=== PATIENT | male | born 1990 | race Caucasian/White ===

== ENCOUNTER 2016-05-23 22:16 | Emergency (ER) | payer BC, OTHER ==
[2016-05-24 00:29] LABS: BASO # 0.1 K/mm3 (0.0-0.2); EOS # 0.2 K/mm3 (0.0-0.50); EOS % 2.3 % (0.0-3.0); LARGE UNSTAINED CELL # 0.2 K/mm3 (0.0-0.4); LARGE UNSTAINED CELL % 1.9 % (0.0-4.0); LYMPH # 2.7 K/mm3 (1.5-6.5); LYMPH % 25.1 % (24.0-44.0); MEAN CORPUSCULAR HEMOGLOBIN 31.9 pg (27.0-33.0); MEAN CORPUSCULAR HGB CONC 34.7 g/dl (32.0-36.5); MEAN CORPUSCULAR VOLUME 91.8 fl (80.0-96.0); MONO # 0.6 K/mm3 (0.0-0.8); MONO % 6.1 % (0.0-5.0); NEUTROPHILS # 6.5 K/mm3 (1.8-7.7); NEUTROPHILS % 63.8 % (36.0-66.0); PLATELET COUNT, AUTOMATED 273 k/mm3 (150-450); RED CELL DISTRIBUTION WIDTH 12.6 % (11.5-14.5); WHITE BLOOD COUNT 10.2 K/mm3 (4.0-10.0)
[2016-05-24 00:50] LABS: ANION GAP 5 MEQ/L (8-16); BLOOD UREA NITROGEN 16 MG/DL (7-18); CALCIUM LEVEL 9.2 MG/DL (8.5-10.1); CARBON DIOXIDE LEVEL 29 MEQ/L (21-32); CHLORIDE LEVEL 107 MEQ/L (98-107); CREATININE FOR GFR 1.08 MG/DL (0.70-1.30); GLOMERULAR FILTRATION RATE > 60.0 (>60); GLUCOSE, FASTING 95 MG/DL (70-105); MAGNESIUM LEVEL 2.3 MG/DL (1.8-2.4); POTASSIUM SERUM 4.2 MEQ/L (3.5-5.1); SODIUM LEVEL 141 MEQ/L (136-145)
--- NOTE | 2016-05-24 01:22 | EDDOCDS ---
Physician Documentation [facility] Name: Spike Cleveland Age: 25 yrs Sex: Male : 1990 Arrival Date: 05/23/2016 Time: 22:16 Bed I5 / M5 Private MD: James Contreras Disposition: 05/24/16 01:10 Discharged to Home/Self Care. Impression: Chest pain, unspecified, Cannabis use, unspecified. - Condition is Stable. - Discharge Instructions: Nonspecific Chest Pain, Cannabis Use Disorder. - Medication Reconciliation, Local Pharmacy Hours form. - [facility]; When: Call to arrange an appointment; Reason: To establish care. Follow up: [facility]; When: Call to arrange an appointment; Reason: Recheck today's complaints. Follow up: Emergency Department; When: As needed; Reason: Worsening of conditions. - Problem is new. - Symptoms have improved. - Notes: recommend stopping supplements and marijuana use. call to arrange follow up appointment with cardiology. return to ER if worsening condition Historical: - Allergies: No known drug Allergies; - Home Meds: 1. scarlett extract 350 mg oral cap 2. 5-HTP 100 mg oral cap 3. zinc sulfate 66 mg Oral tab - PMHx: none; - PSHx: right ankle; ACL repair BL; - Social history: Smoking status: other Patient uses street drugs, marijuana, No barriers to communication noted, The patient speaks fluent Jamaican, Speaks appropriately for age, Preferred Language: Jamaican. - Family history: Not pertinent. - : The pt / caregiver states he / she is not on anticoagulants. Home medication list is obtained from the patient. - Exposure Risk Screening:: None identified. Vital Signs: 05/23 22:19 BP 145 / 77; Pulse 65; Resp 18 S; Temp 96.9(O); Pulse Ox 100% on R/A; Weight 74.39 kg / gr2 164 lbs (R); Height 5 ft. 6 in. (167.64 cm) (R); Pain 3/10; 05/24 01:18 BP 141 / 71; Pulse 67; Resp 16; Temp 97.1; Pulse Ox 99% on R/A; Pain 3/10; ld5 05/23 22:19 Body Mass Index 26.47 (74.39 kg, 167.64 cm) gr2 MDM: 05/23 22:49 ECG WITH READING ER PHYS+CARDIAG ordered. EDMS 23:57 Financial registration complete. hs2 05/24 00:08 Chest, 2 View (pa\E\lat) Ordered. EDMS 00:08 CBC with Diff Ordered. EDMS 00:08 MED Profile Ordered. EDMS 00:08 Magnesium Level Ordered. EDMS 00:08 Troponin Ordered. EDMS 00:08 D-Dimer Quant Ordered. EDMS 00:08 CIP Ordered. EDMS 00:32 [facility] Payment Agreement was scanned into [employer] and attached to record. hs2 00:44 CBC with Diff Reviewed. ar2 00:44 D-Dimer Quant Reviewed. ar2 00:55 MED Profile Reviewed. ar2 00:55 Magnesium Level Reviewed. ar2 00:55 Troponin Reviewed. ar2 00:55 CIP Reviewed. ar2 Signatures: Dispatcher [employer] EDAL Joi Hawley RN RN lf1 Nir Riley, TYRONE-C PA-C ar2 Sheryl Remy RN RN ld5 Saira Figueroa, Reg Reg hs2 The chart was reviewed and I authenticate all verbal orders and agree with the evaluation and treatment provided.Attachments: 00:32 [facility] Payment Agreement hs2 MTDD
--- NOTE | 2016-05-24 01:22 | EDDOCDS ---
Nurse's Notes [facility] Name: Spike Cleveland Age: 25 yrs Sex: Male : 1990 Arrival Date: 05/23/2016 Time: 22:16 Bed I5 / M5 Private MD: James Contreras Diagnosis: Chest pain, unspecified;Cannabis use, unspecified Presentation: 05/23 22:24 Presenting complaint: Patient states: Chest that began last night at 0200 while resting lf1 in bed. Pt reports that he felt that something dropped in his chest and he was having a hear attack. Pt states symptoms have improved but is not resolved. Pt reports he took 5 of his 5-HTP supplements and 1 Scarlett supplement. Aspirin was not taken prior to arrival. Adult Sepsis Screening: The patient does not have new or worsening altered mentation. Patient's respiratory rate is less than 22. Systolic blood pressure is greater than 100. Patient has a qSOFA score of 0- Negative Sepsis Screen. Suicide/Homicide risk assessment- the patient denies having any suicidal and/or homicidal ideations and does not present with any other emotional, behavioral or mental health complaints. Status: Patient is not a business services tech or dependent. Transition of care: patient was not received from another setting of care. 22:24 Acuity: NAWAF Level 3 lf1 22:24 Method Of Arrival: Walkin/Carried/Asstd lf1 Triage Assessment: 22:33 General: Appears distressed, Behavior is anxious, restless. Pain: Location: chest Pain lf1 currently is 3 out of 10 on a pain scale. Quality of pain is described as pulsating. HIV screening NA for this visit Offered previously. Neurological: Level of Consciousness is awake, alert, Oriented to person, place, time. EENT: No deficits noted. Cardiovascular: Chest pain is described as diffuse, quality is heaviness, radiates Does not radiate. episodes are continuous began 20 hours ago. Respiratory: Respiratory effort is even, unlabored, Reports shortness of breath. GI: Denies nausea, vomiting. Derm: Skin is normal. Historical: - Allergies: No known drug Allergies; - Home Meds: 1. scarlett extract 350 mg oral cap 2. 5-HTP 100 mg oral cap 3. zinc sulfate 66 mg Oral tab - PMHx: none; - PSHx: right ankle; ACL repair BL; - Social history: Smoking status: other Patient uses street drugs, marijuana, No barriers to communication noted, The patient speaks fluent Setswana, Speaks appropriately for age, Preferred Language: Setswana. - Family history: Not pertinent. - : The pt / caregiver states he / she is not on anticoagulants. Home medication list is obtained from the patient. - Exposure Risk Screening:: None identified. Screenin/27 01:18 Screening information is obtained from the patient. Fall risk: No risks identified. ld5 Assistance ADL's: requires no assistance with activities of daily living. Assistance ADL's: requires no assistance with activities of daily living. Abuse/DV Screen: The patient / caregiver reports he/she is: not in a situation that causes fear, pain or injury. Nutritional screening: No deficits noted. Advance Directives: There is no active DNR order. home support is adequate. Assessment: 01:18 General: Appears in no apparent distress, Behavior is anxious, cooperative. Pain: ld5 Location: chest Pain currently is 3 out of 10 on a pain scale. Neurological: Level of Consciousness is awake, alert, obeys commands. Cardiovascular: Rhythm is n/a. Respiratory: Airway is patent Respiratory effort is even, unlabored. GI: Denies nausea, vomiting. Derm: Skin is intact, Skin is dry. Vital Signs: 05/23 22:19 BP 145 / 77; Pulse 65; Resp 18 S; Temp 96.9(O); Pulse Ox 100% on R/A; Weight 74.39 kg gr2 (R); Height 5 ft. 6 in. (167.64 cm) (R); Pain 3/10; 05/24 01:18 BP 141 / 71; Pulse 67; Resp 16; Temp 97.1; Pulse Ox 99% on R/A; Pain 3/10; ld5 05/23 22:19 Body Mass Index 26.47 (74.39 kg, 167.64 cm) gr2 Vitals: 05/23 22:19 Log In Time: May 23, 2016 at 22:19. gr2 ED Course: 22:18 Patient visited by Paul Boone. gr2 22:18 Patient moved to Waiting gr2 22:19 James Contreras is Private Physician. gr2 22:20 Patient visited by Paul Boone. gr2 22:20 Patient moved to Pre RCE gr2 22:31 Triage Initiated lf1 22:46 Patient moved to Triage 2 cz 23:29 EKG done. (by ED staff). Reviewed by Elias Martin DO. rw1 23:53 Nir Riley PA-C is PHCP. ar2 23:53 Elias Martin DO is Attending Physician. ar2 23:57 Patient visited by Nir Riley PA-C. ar2 05/24 00:14 Patient moved to I5 / M5 cz 00:18 CIP Sent. lf1 00:18 D-Dimer Quant Sent. lf1 00:18 Troponin Sent. lf1 00:18 Magnesium Level Sent. lf1 00:18 MED Profile Sent. lf1 00:18 CBC with Diff Sent. lf1 00:26 Patient name changed from Spike\S\D\S\Cleveland\S\ to Spike\S\Juan\S\Cleveland. EDMS 00:32 [facility] Payment Agreement was scanned into [employer] and attached to record. hs2 01:04 Patient visited by Sheryl Remy RN. ld5 01:09 [facility] is Referral Physician. ar2 01:09 [facility] is Referral Physician. ar2 01:18 No IV's were initiated during this patient's visit. No procedures done that require ld5 assistance. 01:20 The patient / caregiver is instructed regarding the plan of care and ED course. Cardiac ld5 monitoring not applicable on this patient. 01:21 Patient visited by Sheryl Remy RN. ld5 Order Results: Lab Order: CBC with Diff; SPEC'M 05/24/16 00:13 Test: WHITE BLOOD COUNT; Value: 10.2; Range: 4.0-10.0; Abnormal: Above high normal; Units: K/mm3; Status: F Test: RED BLOOD COUNT; Value: 4.86; Range: 4.30-6.10; Units: M/mm3; Status: F Test: HEMOGLOBIN; Value: 15.5; Range: 14.0-18.0; Units: g/dl; Status: F Test: HEMATOCRIT; Value: 44.6; Range: 42.0-52.0; Units: %; Status: F Test: MEAN CORPUSCULAR VOLUME; Value: 91.8; Range: 80.0-96.0; Units: fl; Status: F Test: MEAN CORPUSCULAR HEMOGLOBIN; Value: 31.9; Range: 27.0-33.0; Units: pg; Status: F Test: MEAN CORPUSCULAR HGB CONC; Value: 34.7; Range: 32.0-36.5; Units: g/dl; Status: F Test: RED CELL DISTRIBUTION WIDTH; Value: 12.6; Range: 11.5-14.5; Units: %; Status: F Test: PLATELET COUNT, AUTOMATED; Value: 273; Range: 150-450; Units: k/mm3; Status: F Test: NEUTROPHILS %; Value: 63.8; Range: 36.0-66.0; Units: %; Status: F Test: LYMPH %; Value: 25.1; Range: 24.0-44.0; Units: %; Status: F Test: MONO %; Value: 6.1; Range: 0.0-5.0; Abnormal: Above high normal; Units: %; Status: F Test: EOS %; Value: 2.3; Range: 0.0-3.0; Units: %; Status: F Test: BASO %; Value: 1.0; Range: 0.0-1.0; Units: %; Status: F Test: LARGE UNSTAINED CELL %; Value: 1.9; Range: 0.0-4.0; Units: %; Status: F Test: NEUTROPHILS #; Value: 6.5; Range: 1.8-7.7; Units: K/mm3; Status: F Test: LYMPH #; Value: 2.7; Range: 1.5-6.5; Units: K/mm3; Status: F Test: MONO #; Value: 0.6; Range: 0.0-0.8; Units: K/mm3; Status: F Test: EOS #; Value: 0.2; Range: 0.0-0.50; Units: K/mm3; Status: F Test: BASO #; Value: 0.1; Range: 0.0-0.2; Units: K/mm3; Status: F Test: LARGE UNSTAINED CELL #; Value: 0.2; Range: 0.0-0.4; Units: K/mm3; Status: F Lab Order: MED Profile; SPEC'M 05/24/16 00:13 Test: GLUCOSE, FASTING; Value: 95; Range: 70-105; Units: MG/DL; Status: F Test: BLOOD UREA NITROGEN; Value: 16; Range: 7-18; Units: MG/DL; Status: F Test: CREATININE FOR GFR; Value: 1.08; Range: 0.70-1.30; Units: MG/DL; Status: F Test: GLOMERULAR FILTRATION RATE; Value: > 60.0; Range: >60; Status: F Test: SODIUM LEVEL; Value: 141; Range: 136-145; Units: MEQ/L; Status: F Test: POTASSIUM SERUM; Value: 4.2; Range: 3.5-5.1; Units: MEQ/L; Status: F Test: CHLORIDE LEVEL; Value: 107; Range: 98-107; Units: MEQ/L; Status: F Test: CARBON DIOXIDE LEVEL; Value: 29; Range: 21-32; Units: MEQ/L; Status: F Test: ANION GAP; Value: 5; Range: 8-16; Abnormal: Below low normal; Units: MEQ/L; Status: F Test: CALCIUM LEVEL; Value: 9.2; Range: 8.5-10.1; Units: MG/DL; Status: F Test Note: ; Units are mL/min/1.73 m2 Chronic Kidney Disease Staging per NKF: Stage I & II GFR >=60 Normal to Mildly Decreased Stage III GFR 30-59 Moderately Decreased Stage IV GFR 15-29 Severely Decreased Stage V GFR <15 Very Little GFR Left ESRD GFR <15 on PRODUCTION WORKER Lab Order: Magnesium Level; SPEC'M 05/24/16 00:13 Test: MAGNESIUM LEVEL; Value: 2.3; Range: 1.8-2.4; Units: MG/DL; Status: F Lab Order: Troponin; SPEC'M 05/24/16 00:13 Test: TROPONIN I; Value: < 0.02; Range: < 0.10; Units: NG/ML; Status: F Test Note: ; Troponin I Reference Interval for [employer] LOCI: 99th Percentile= 0.00-0.045 ng/ml Risk Stratification: <= 0.10 ng/ml Decreased Risk for Adverse Clinical Events. 0.10-1.50 ng/ml Increased Risk for Adverse Clinical Events. Evaluation of additional criterion and/or repeat testing in 2-6 hours is suggested to rule out myocardial damage. >= 1.50 ng/ml Indicative of Myocardial Injury. Lab Order: D-Dimer Quant; SPEC'M 05/24/16 00:13 Test: D-DIMER QUANT; Value: 280.4; Range: <500; Units: ng/ml; Status: F Lab Order: CIP; SPEC'M 05/24/16 00:13 Test: CPK CREATINE PHOSPHOKINASE; Value: 235; Range: 39-308; Units: U/L; Status: F Test: CK-MB VALUE MASS; Value: 2.1; Range: 0.0-3.6; Units: NG/ML; Status: F Test: MB/CK RELATIVE INDEX; Value: 0.89; Range: < OR =4; Status: F Test Note: ; DIAGNOSIS CRITERIA MMB ng/ml Relative Index (RI) NON-AMI < or = 5 N/A PEDRO ZONE > 5 < or = 4 AMI > 5 > 4 Outcome: 01:10 Discharge ordered by Provider. ar2 01:18 Discharge Assessment: Patient awake, alert and oriented x 3. No cognitive and/or ld5 functional deficits noted. Patient verbalized understanding of disposition instructions. patient administered narcotics - no. The following High Risk Discharge criteria are identified: None. Discharged to home ambulatory. Condition: stable. Discharge instructions given to patient, Instructed on discharge instructions, follow up and referral plans. marijuana use, supplement use. 01:20 No special radiology studies were completed. Property :Personal belongings accompany Pt.ld5 01:20 Patient left the ED. ld5 Signatures: Dispatcher [employer] EDMS Mino Kellogg, RN RN cz Morris Hale LPN LPN rw1 Joi Hawley RN RN lf1 Nir Riley PA-C PAAlli ar2 Sheryl Remy RN RN ld5 Paul Boone gr2 Saira Figueroa, Reg Reg hs2 MTDD
--- NOTE | 2016-05-24 01:56 | REP ---
Clinical: Central chest pain . Comparison: 08/25/2008 . Technique: PA and lateral. Findings: The mediastinum and cardiac silhouette are normal. The lung rosen are clear and without acute consolidation, effusion, or pneumothorax. The skeletal structures are intact and normal. Impression: 1. No acute cardiopulmonary process. Signed by Santiago Ellington MD 05/24/2016 01:48 A
--- NOTE | 2016-05-24 07:36 | ECGEPIP ---
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 Order Number: [id number] Reading MD: Mercedes Tobar Measurements Intervals [place] Rate: 62 P: 50 [place]: 120 QRS: 58 QRSD: 102 T: 26 QT: 389 QTc: 395 Interpretive Statements SINUS RHYTHM WITH SINUS ARRHYTHMIA POSSIBLE RIGHT VENTRICULAR CONDUCTION DELAY ST ELEVATION, PROBABLY EARLY REPOLARIZATION, CLINICAL CORRELATION NO PRIOR FOR COMPARISON Electronically Signed On 05-24-2016 7:36:13 EST by Mercedes Tobar
--- NOTE | 2016-05-26 02:22 | EDDOCDS ---
Physician Documentation [facility] Name: Spike Cleveland Age: 25 yrs Sex: Male : 1990 Arrival Date: 05/23/2016 Time: 22:16 Bed I5 / M5 Private MD: James Contreras Disposition: 05/24/16 01:10 Discharged to Home/Self Care. Impression: Chest pain, unspecified, Cannabis use, unspecified. - Condition is Stable. - Discharge Instructions: Nonspecific Chest Pain, Cannabis Use Disorder. - Medication Reconciliation, Local Pharmacy Hours form. - [facility]; When: Call to arrange an appointment; Reason: To establish care. Follow up: [facility]; When: Call to arrange an appointment; Reason: Recheck today's complaints. Follow up: Emergency Department; When: As needed; Reason: Worsening of conditions. - Problem is new. - Symptoms have improved. - Notes: recommend stopping supplements and marijuana use. call to arrange follow up appointment with cardiology. return to ER if worsening condition Historical: - Allergies: No known drug Allergies; - Home Meds: 1. scarlett extract 350 mg oral cap 2. 5-HTP 100 mg oral cap 3. zinc sulfate 66 mg Oral tab - PMHx: none; - PSHx: right ankle; ACL repair BL; - Social history: Smoking status: other Patient uses street drugs, marijuana, No barriers to communication noted, The patient speaks fluent Estonian, Speaks appropriately for age, Preferred Language: Estonian. - Family history: Not pertinent. - : The pt / caregiver states he / she is not on anticoagulants. Home medication list is obtained from the patient. - Exposure Risk Screening:: None identified. Vital Signs: 05/23 22:19 BP 145 / 77; Pulse 65; Resp 18 S; Temp 96.9(O); Pulse Ox 100% on R/A; Weight 74.39 kg / gr2 164 lbs (R); Height 5 ft. 6 in. (167.64 cm) (R); Pain 3/10; 05/24 01:18 BP 141 / 71; Pulse 67; Resp 16; Temp 97.1; Pulse Ox 99% on R/A; Pain 3/10; ld5 05/23 22:19 Body Mass Index 26.47 (74.39 kg, 167.64 cm) gr2 MDM: 05/23 22:49 ECG WITH READING ER PHYS+CARDIAG ordered. EDMS 23:57 Financial registration complete. hs2 05/24 00:08 Chest, 2 View (pa\E\lat) Ordered. EDMS 00:08 CBC with Diff Ordered. EDMS 00:08 MED Profile Ordered. EDMS 00:08 Magnesium Level Ordered. EDMS 00:08 Troponin Ordered. EDMS 00:08 D-Dimer Quant Ordered. EDMS 00:08 CIP Ordered. EDMS 00:32 [facility] Payment Agreement was scanned into [employer] and attached to record. hs2 00:44 CBC with Diff Reviewed. ar2 00:44 D-Dimer Quant Reviewed. ar2 00:55 MED Profile Reviewed. ar2 00:55 Magnesium Level Reviewed. ar2 00:55 Troponin Reviewed. ar2 00:55 CIP Reviewed. ar2 09:00 T-Sheet-- Draft Copy was scanned into [employer] and attached to record. gb 09:00 ECG/EKG was scanned into [employer] and attached to record. gb Signatures: Dispatcher [employer] EDSC Joaquina Pena, Reg Reg gb Joi Hawley,RN RN lf1 Nir Riley, SONYA PACatherineC ar2 Sheryl Remy,RN RN ld5 Saira Figueroa, Reg Reg hs2 The chart was reviewed and I authenticate all verbal orders and agree with the evaluation and treatment provided.Attachments: 00:32 [facility] Payment Agreement hs2 09:00 T-Sheet-- Draft Copy gb 09:00 ECG/EKG gb Chart Complete MTDD
--- NOTE | 2016-05-26 02:22 | EDDOCDS ---
Physician Documentation [facility] Name: Spike Cleveland Age: 25 yrs Sex: Male : 1990 Arrival Date: 05/23/2016 Time: 22:16 Bed I5 / M5 Private MD: James Contreras Disposition: 05/24/16 01:10 Discharged to Home/Self Care. Impression: Chest pain, unspecified, Cannabis use, unspecified. - Condition is Stable. - Discharge Instructions: Nonspecific Chest Pain, Cannabis Use Disorder. - Medication Reconciliation, Local Pharmacy Hours form. - Follow up[facility]; When: Call to arrange an appointment; Reason: To establish care. Follow up: [facility]; When: Call to arrange an appointment; Reason: Recheck today's complaints. Follow up: Emergency Department; When: As needed; Reason: Worsening of conditions. - Problem is new. - Symptoms have improved. - Notes: recommend stopping supplements and marijuana use. call to arrange follow up appointment with cardiology. return to ER if worsening condition Historical: - Allergies: No known drug Allergies; - Home Meds: 1. scarlett extract 350 mg oral cap 2. 5-HTP 100 mg oral cap 3. zinc sulfate 66 mg Oral tab - PMHx: none; - PSHx: right ankle; ACL repair BL; - Social history: Smoking status: other Patient uses street drugs, marijuana, No barriers to communication noted, The patient speaks fluent Trinidadian, Speaks appropriately for age, Preferred Language: Trinidadian. - Family history: Not pertinent. - : The pt / caregiver states he / she is not on anticoagulants. Home medication list is obtained from the patient. - Exposure Risk Screening:: None identified. Vital Signs: 05/23 22:19 BP 145 / 77; Pulse 65; Resp 18 S; Temp 96.9(O); Pulse Ox 100% on R/A; Weight 74.39 kg / gr2 164 lbs (R); Height 5 ft. 6 in. (167.64 cm) (R); Pain 3/10; 05/24 01:18 BP 141 / 71; Pulse 67; Resp 16; Temp 97.1; Pulse Ox 99% on R/A; Pain 3/10; ld5 05/23 22:19 Body Mass Index 26.47 (74.39 kg, 167.64 cm) gr2 MDM: 05/23 22:49 ECG WITH READING ER PHYS+CARDIAG ordered. EDMS 23:57 Financial registration complete. hs2 05/24 00:08 Chest, 2 View (pa\E\lat) Ordered. EDMS 00:08 CBC with Diff Ordered. EDMS 00:08 MED Profile Ordered. EDMS 00:08 Magnesium Level Ordered. EDMS 00:08 Troponin Ordered. EDMS 00:08 D-Dimer Quant Ordered. EDMS 00:08 CIP Ordered. EDMS 00:32 [facility] Payment Agreement was scanned into [employer] and attached to record. hs2 00:44 CBC with Diff Reviewed. ar2 00:44 D-Dimer Quant Reviewed. ar2 00:55 MED Profile Reviewed. ar2 00:55 Magnesium Level Reviewed. ar2 00:55 Troponin Reviewed. ar2 00:55 CIP Reviewed. ar2 09:00 T-Sheet-- Draft Copy was scanned into [employer] and attached to record. gb 09:00 ECG/EKG was scanned into [employer] and attached to record. gb Signatures: Dispatcher [employer] EDNM Joaquina Pena, Reg Reg gb Joi Hawley,RN RN lf1 Nir Riley, SONYA PACatherineC ar2 Sheryl Remy,RN RN ld5 Saira Figueroa, Reg Reg hs2 The chart was reviewed and I authenticate all verbal orders and agree with the evaluation and treatment provided.Attachments: 00:32 [facility] Payment Agreement hs2 09:00 T-Sheet-- Draft Copy gb 09:00 ECG/EKG gb Chart Complete MTDD
--- NOTE | 2016-05-26 02:22 | EDDOCDS ---
Nurse's Notes [facility] Name: Spike Cleveland Age: 25 yrs Sex: Male : 1990 Arrival Date: 05/23/2016 Time: 22:16 Bed I5 / M5 Private MD: James Contreras Diagnosis: Chest pain, unspecified;Cannabis use, unspecified Presentation: 05/23 22:24 Presenting complaint: Patient states: Chest that began last night at 0200 while resting lf1 in bed. Pt reports that he felt that something dropped in his chest and he was having a hear attack. Pt states symptoms have improved but is not resolved. Pt reports he took 5 of his 5-HTP supplements and 1 Scarlett supplement. Aspirin was not taken prior to arrival. Adult Sepsis Screening: The patient does not have new or worsening altered mentation. Patient's respiratory rate is less than 22. Systolic blood pressure is greater than 100. Patient has a qSOFA score of 0- Negative Sepsis Screen. Suicide/Homicide risk assessment- the patient denies having any suicidal and/or homicidal ideations and does not present with any other emotional, behavioral or mental health complaints. Status: Patient is not a tire servicer or dependent. Transition of care: patient was not received from another setting of care. 22:24 Acuity: NAWAF Level 3 lf1 22:24 Method Of Arrival: Walkin/Carried/Asstd lf1 Triage Assessment: 22:33 General: Appears distressed, Behavior is anxious, restless. Pain: Location: chest Pain lf1 currently is 3 out of 10 on a pain scale. Quality of pain is described as pulsating. HIV screening NA for this visit Offered previously. Neurological: Level of Consciousness is awake, alert, Oriented to person, place, time. EENT: No deficits noted. Cardiovascular: Chest pain is described as diffuse, quality is heaviness, radiates Does not radiate. episodes are continuous began 20 hours ago. Respiratory: Respiratory effort is even, unlabored, Reports shortness of breath. GI: Denies nausea, vomiting. Derm: Skin is normal. Historical: - Allergies: No known drug Allergies; - Home Meds: 1. scarlett extract 350 mg oral cap 2. 5-HTP 100 mg oral cap 3. zinc sulfate 66 mg Oral tab - PMHx: none; - PSHx: right ankle; ACL repair BL; - Social history: Smoking status: other Patient uses street drugs, marijuana, No barriers to communication noted, The patient speaks fluent Turkmen, Speaks appropriately for age, Preferred Language: Turkmen. - Family history: Not pertinent. - : The pt / caregiver states he / she is not on anticoagulants. Home medication list is obtained from the patient. - Exposure Risk Screening:: None identified. Screenin/27 01:18 Screening information is obtained from the patient. Fall risk: No risks identified. ld5 Assistance ADL's: requires no assistance with activities of daily living. Assistance ADL's: requires no assistance with activities of daily living. Abuse/DV Screen: The patient / caregiver reports he/she is: not in a situation that causes fear, pain or injury. Nutritional screening: No deficits noted. Advance Directives: There is no active DNR order. home support is adequate. Assessment: 01:18 General: Appears in no apparent distress, Behavior is anxious, cooperative. Pain: ld5 Location: chest Pain currently is 3 out of 10 on a pain scale. Neurological: Level of Consciousness is awake, alert, obeys commands. Cardiovascular: Rhythm is n/a. Respiratory: Airway is patent Respiratory effort is even, unlabored. GI: Denies nausea, vomiting. Derm: Skin is intact, Skin is dry. Vital Signs: 05/23 22:19 BP 145 / 77; Pulse 65; Resp 18 S; Temp 96.9(O); Pulse Ox 100% on R/A; Weight 74.39 kg gr2 (R); Height 5 ft. 6 in. (167.64 cm) (R); Pain 3/10; 05/24 01:18 BP 141 / 71; Pulse 67; Resp 16; Temp 97.1; Pulse Ox 99% on R/A; Pain 3/10; ld5 05/23 22:19 Body Mass Index 26.47 (74.39 kg, 167.64 cm) gr2 Vitals: 05/23 22:19 Log In Time: May 23, 2016 at 22:19. gr2 ED Course: 22:18 Patient visited by Paul Boone. gr2 22:18 Patient moved to Waiting gr2 22:19 James Contreras is Private Physician. gr2 22:20 Patient visited by Paul Boone. gr2 22:20 Patient moved to Pre RCE gr2 22:31 Triage Initiated lf1 22:46 Patient moved to Triage 2 cz 23:29 EKG done. (by ED staff). Reviewed by Elias Martin DO. rw1 23:53 Sixto Mora PA-C is PHCP. ar2 23:53 Elias Martin DO is Attending Physician. ar2 23:57 Patient visited by Sixto Mora PA-C. ar2 05/24 00:14 Patient moved to I5 / M5 cz 00:18 CIP Sent. lf1 00:18 D-Dimer Quant Sent. lf1 00:18 Troponin Sent. lf1 00:18 Magnesium Level Sent. lf1 00:18 MED Profile Sent. lf1 00:18 CBC with Diff Sent. lf1 00:26 Patient name changed from Spike\S\D\S\Cleveland\S\ to Spike\S\Juan\S\Cleveland. EDMS 00:32 [facility] Payment Agreement was scanned into [employer] and attached to record. hs2 01:04 Patient visited by Sheryl Remy RN. ld5 01:09 [facility] is Referral Physician. ar2 01:09 Clatyon Salter is Referral Physician. ar2 01:18 No IV's were initiated during this patient's visit. No procedures done that require ld5 assistance. 01:20 The patient / caregiver is instructed regarding the plan of care and ED course. Cardiac ld5 monitoring not applicable on this patient. 01:21 Patient visited by Sheryl Remy RN. ld5 01:58 Chest, 2 View (pa\E\lat) Returned. EDMS 07:53 ECG WITH READING ER PHYS Returned. EDMS 09:00 T-Sheet-- Draft Copy was scanned into [employer] and attached to record. gb 09:00 ECG/EKG was scanned into [employer] and attached to record. gb Order Results: Lab Order: CBC with Diff; SPEC'M 05/24/16 00:13 Test: WHITE BLOOD COUNT; Value: 10.2; Range: 4.0-10.0; Abnormal: Above high normal; Units: K/mm3; Status: F Test: RED BLOOD COUNT; Value: 4.86; Range: 4.30-6.10; Units: M/mm3; Status: F Test: HEMOGLOBIN; Value: 15.5; Range: 14.0-18.0; Units: g/dl; Status: F Test: HEMATOCRIT; Value: 44.6; Range: 42.0-52.0; Units: %; Status: F Test: MEAN CORPUSCULAR VOLUME; Value: 91.8; Range: 80.0-96.0; Units: fl; Status: F Test: MEAN CORPUSCULAR HEMOGLOBIN; Value: 31.9; Range: 27.0-33.0; Units: pg; Status: F Test: MEAN CORPUSCULAR HGB CONC; Value: 34.7; Range: 32.0-36.5; Units: g/dl; Status: F Test: RED CELL DISTRIBUTION WIDTH; Value: 12.6; Range: 11.5-14.5; Units: %; Status: F Test: PLATELET COUNT, AUTOMATED; Value: 273; Range: 150-450; Units: k/mm3; Status: F Test: NEUTROPHILS %; Value: 63.8; Range: 36.0-66.0; Units: %; Status: F Test: LYMPH %; Value: 25.1; Range: 24.0-44.0; Units: %; Status: F Test: MONO %; Value: 6.1; Range: 0.0-5.0; Abnormal: Above high normal; Units: %; Status: F Test: EOS %; Value: 2.3; Range: 0.0-3.0; Units: %; Status: F Test: BASO %; Value: 1.0; Range: 0.0-1.0; Units: %; Status: F Test: LARGE UNSTAINED CELL %; Value: 1.9; Range: 0.0-4.0; Units: %; Status: F Test: NEUTROPHILS #; Value: 6.5; Range: 1.8-7.7; Units: K/mm3; Status: F Test: LYMPH #; Value: 2.7; Range: 1.5-6.5; Units: K/mm3; Status: F Test: MONO #; Value: 0.6; Range: 0.0-0.8; Units: K/mm3; Status: F Test: EOS #; Value: 0.2; Range: 0.0-0.50; Units: K/mm3; Status: F Test: BASO #; Value: 0.1; Range: 0.0-0.2; Units: K/mm3; Status: F Test: LARGE UNSTAINED CELL #; Value: 0.2; Range: 0.0-0.4; Units: K/mm3; Status: F Lab Order: MED Profile; SPEC'05/24/16 00:13 Test: GLUCOSE, FASTING; Value: 95; Range: 70-105; Units: MG/DL; Status: F Test: BLOOD UREA NITROGEN; Value: 16; Range: 7-18; Units: MG/DL; Status: F Test: CREATININE FOR GFR; Value: 1.08; Range: 0.70-1.30; Units: MG/DL; Status: F Test: GLOMERULAR FILTRATION RATE; Value: > 60.0; Range: >60; Status: F Test: SODIUM LEVEL; Value: 141; Range: 136-145; Units: MEQ/L; Status: F Test: POTASSIUM SERUM; Value: 4.2; Range: 3.5-5.1; Units: MEQ/L; Status: F Test: CHLORIDE LEVEL; Value: 107; Range: 98-107; Units: MEQ/L; Status: F Test: CARBON DIOXIDE LEVEL; Value: 29; Range: 21-32; Units: MEQ/L; Status: F Test: ANION GAP; Value: 5; Range: 8-16; Abnormal: Below low normal; Units: MEQ/L; Status: F Test: CALCIUM LEVEL; Value: 9.2; Range: 8.5-10.1; Units: MG/DL; Status: F Test Note: ; Units are mL/min/1.73 m2 Chronic Kidney Disease Staging per NKF: Stage I & II GFR >=60 Normal to Mildly Decreased Stage III GFR 30-59 Moderately Decreased Stage IV GFR 15-29 Severely Decreased Stage V GFR <15 Very Little GFR Left ESRD GFR <15 on PACKING ROOM SUPERVISOR Lab Order: Magnesium Level; SPEC'05/24/16 00:13 Test: MAGNESIUM LEVEL; Value: 2.3; Range: 1.8-2.4; Units: MG/DL; Status: F Lab Order: Troponin; SPEC'05/24/16 00:13 Test: TROPONIN I; Value: < 0.02; Range: < 0.10; Units: NG/ML; Status: F Test Note: ; Troponin I Reference Interval for [employer] [place] LOCI: 99th Percentile= 0.00-0.045 ng/ml Risk Stratification: <= 0.10 ng/ml Decreased Risk for Adverse Clinical Events. 0.10-1.50 ng/ml Increased Risk for Adverse Clinical Events. Evaluation of additional criterion and/or repeat testing in 2-6 hours is suggested to rule out myocardial damage. >= 1.50 ng/ml Indicative of Myocardial Injury. Lab Order: D-Dimer Quant; SPEC'M 05/24/16 00:13 Test: D-DIMER QUANT; Value: 280.4; Range: <500; Units: ng/ml; Status: F Lab Order: CIP; SPEC'M 05/24/16 00:13 Test: CPK CREATINE PHOSPHOKINASE; Value: 235; Range: 39-308; Units: U/L; Status: F Test: CK-MB VALUE MASS; Value: 2.1; Range: 0.0-3.6; Units: NG/ML; Status: F Test: MB/CK RELATIVE INDEX; Value: 0.89; Range: < OR =4; Status: F Test Note: ; DIAGNOSIS CRITERIA MMB ng/ml Relative Index (RI) NON-AMI < or = 5 N/A PEDRO ZONE > 5 < or = 4 AMI > 5 > 4 Radiology Order: ECG WITH READING ER PHYS Test: ECG WITH READING ER PHYS REASON FOR EXAMINATION: Chest Pain; Stationary ECG Study; [facility] - ED; ; Test Date: 2016-05-23; Pat Name: SPIKE CLEVELADN Department:; Room: -; Gender: M Framing Specialist: zelda; : 1990 Requested By: SIXTO MORA PA-C.; Order Number: [id number] Reading MD: Mercedes Tobar; Measurements; Intervals Moro; Rate: 62 P: 50; WV: 120 QRS: 58; QRSD: 102 T: 26; QT: 389; QTc: 395; Interpretive Statements; SINUS RHYTHM WITH SINUS ARRHYTHMIA; POSSIBLE RIGHT VENTRICULAR CONDUCTION DELAY; ST ELEVATION, PROBABLY EARLY REPOLARIZATION, CLINICAL CORRELATION; NO PRIOR FOR COMPARISON; Electronically Signed On 05-24-2016 7:36:13 EST by Mercedes Tobar; Radiology Order: Chest, 2 View (pa\E\lat) Test: Chest, 2 View (pa\E\lat) REASON FOR EXAMINATION: central chest pain; Clinical: Central chest pain .; ; Comparison: 08/25/2008 .; ; Technique: PA and lateral.; ; Findings:; The mediastinum and cardiac silhouette are normal. The lung rosen are clear and; without acute consolidation, effusion, or pneumothorax. The skeletal structures; are intact and normal.; ; Impression:; 1. No acute cardiopulmonary process.; ; ; Signed by; Santiago Ellington MD 05/24/2016 01:48 A; Outcome: 01:10 Discharge ordered by Provider. ar2 01:18 Discharge Assessment: Patient awake, alert and oriented x 3. No cognitive and/or ld5 functional deficits noted. Patient verbalized understanding of disposition instructions. patient administered narcotics - no. The following High Risk Discharge criteria are identified: None. Discharged to home ambulatory. Condition: stable. Discharge instructions given to patient, Instructed on discharge instructions, follow up and referral plans. marijuana use, supplement use. 01:20 No special radiology studies were completed. Property :Personal belongings accompany Pt.ld5 01:20 Patient left the ED. ld5 Signatures: Dispatcher [employer] EDMS Mino Kellogg, RN RN cz Joaquina Pena, Reg Reg gb Morris Hale LPN LPN rw1 Joi Hawley RN RN lf1 Sixto Mora, PA-C PACatherineC ar2 Sheryl Remy RN RN ld5 Paul Boone 2 Saira Figueroa, Reg Reg hs2 Chart Complete MTDD
== END 2016-05-24 01:20 | disposition home or self-care (01) ==
LOC: M ED 22:16
DX: R07.9 Chest pain, unspecified (principal); F12.10 Cannabis abuse, uncomplicated

== ENCOUNTER → 2017-05-12 | Outpatient (CLI) | payer OTHER | LOC: M ADAMS 16:36 | DX: S02.2XXA Fracture of nasal bones, initial encounter for closed fracture (principal); X58.XXXA Exposure to other specified factors, initial encounter; Y92.89 Other specified places as the place of occurrence of the external cause | CPT/HCPCS: 70160 ==

== ENCOUNTER → 2019-10-14 | Outpatient (CLI) | payer MEDICAID, SELFPAY ==
[~2019-10-14] MED LIST: KEFL500C17 PO
--- NOTE | 2019-10-14 14:55 | REP ---
Clinical: Left wrist pain Technique: AP, lateral, bilateral oblique views. Findings: There is a nondisplaced fracture through the scaphoid waist. Remainder of the examination appears normal. Impression: Nondisplaced fracture through the scaphoid waist. Electronically Signed by Santiago Ellington MD 10/14/2019 02:46 P
== END ==
LOC: M ADAMS 09:21
PROVIDERS: ATTEND Physician Assistant
DX: S62.015A Nondisplaced fracture of distal pole of navicular [scaphoid] bone of left wrist, initial encounter for closed fracture (principal); Y92.9 Unspecified place or not applicable; Y99.9 Unspecified external cause status; Y93.9 Activity, unspecified

== ENCOUNTER 2019-11-05 19:04 | Emergency (ER) | payer MEDICAID, SELFPAY ==
[~2019-11-05] VITALS: Ht 172.7 cm; Wt 63.6 kg
[2019-11-05 20:51] LABS: BASO % 0.6 % (0.0-1.0); EOS % 0.3 % (0.0-3.0); HEMATOCRIT 48.9 % (42.0-52.0); HEMOGLOBIN 16.4 g/dl (13.5-17.5); LYMPH # 1.7 10^3/uL (1.5-5.0); LYMPH % 26.5 % (24.0-44.0); MEAN CORPUSCULAR HEMOGLOBIN 31.4 pg (27.0-33.0); MEAN CORPUSCULAR HGB CONC 33.5 g/dl (32.0-36.5); MEAN CORPUSCULAR VOLUME 93.5 fl (80.0-96.0); MONO % 15.1 % (0.0-5.0); NEUTROPHILS # 3.6 10^3/uL (1.5-8.5); NEUTROPHILS % 57.2 % (36.0-66.0); PLATELET COUNT, AUTOMATED 181 10^3/uL (150-450); RED BLOOD COUNT 5.23 10^6/uL (4.30-6.10); WHITE BLOOD COUNT 6.4 10^3/uL (4.0-10.0)
[2019-11-05 21:26] LABS: ERYTHROCYTE SEDIMENTATION RATE 24 mm/hr (0-15)
[2019-11-05] MEDS ORDERED: CEPHALEXIN 500 MG CAP PO ONE (21:45)
[2019-11-05] MEDS ORDERED: ACETAMINOPHEN 500 MG TAB PO ONE (21:45)
[2019-11-05] MEDS ORDERED: KEFL500C17 PO (21:49)
[2019-11-05 22:19] VITALS: BP 119/82
--- NOTE | 2019-11-07 08:04 | REP ---
PA LATERAL CHEST: 11/05/2019. COMPARISON: 05/24/2016. CLINICAL HISTORY: Fever. FINDINGS: The lung rosen are well inflated. There is no infiltrate, effusion, cardiomegaly, edema, atelectasis, or mass. The heart, mediastinal and hilar contours are normal. Bony thorax unremarkable. There is no free air under the diaphragm. IMPRESSION: 1. No acute cardiopulmonary change. Stable chest. Electronically Signed by Jesse Clark MD 11/07/2019 08:45 A
== END 2019-11-05 22:20 | disposition home or self-care (01) ==
LOC: M ED 19:04
DX: L03.312 Cellulitis of back [any part except buttock and flank] (principal); R51 Headache; R50.9 Fever, unspecified